=== PATIENT | female | born 1955 | race Hispanic/Latino ===

== ENCOUNTER 2019-03-22 23:44 | Emergency (ER) | payer MEDICARE ==
[~2019-03-22] VITALS: Ht 152.4 cm; Wt 78.0 kg
[2019-03-23] MEDS ORDERED: ACETAMINOPHEN 325 MG TAB ONE (00:21)
[2019-03-23] MEDS ORDERED: ACETAMINOPHEN 325 MG TAB PO ONE (00:30)
[2019-03-23 00:40] LABS: BILIRUBIN,URINE NEGATIVE (NEGATIVE); CLARITY,URINE CLOUDY (CLEAR); COLOR,URINE YELLOW (YELLOW); KETONES,URINE NEGATIVE (NEGATIVE); LEUKOCYTE ESTERASE ,URINE NEGATIVE (NEGATIVE); NITRITE,URINE NEGATIVE (NEGATIVE); PROTEIN,URINE DIPSTICK 2+ (NEGATIVE); URINE UROBILINOGEN 0.2 mg/dL (0.2 - 1)
[2019-03-23 00:51] LABS: WBC,URINE (MAN) >50 /HPF (0-5)
[2019-03-23 00:52] LABS: BACTERIA,URINE MANY /HPF; EPITHELIAL CELLS,URINE FEW /LPF; TRANSITIONAL EPI CELLS,URINE FEW
--- NOTE | 2019-03-23 01:09 | Diagnostic Imaging Report ---
EXAMINATION: PA and lateral views of the chest. COMPARISON: None CLINICAL HISTORY: Fever DISCUSSION: Lines/tubes: None. Lungs: The lungs are well inflated and clear. No pneumonia or pulmonary edema. Pleura: No pleural effusion or pneumothorax. Heart and mediastinum: The cardiomediastinal silhouette is normal. Bones and soft tissues: No acute bony abnormalities. IMPRESSION: No acute cardiopulmonary abnormalities. Signed by: Dr. Chin Beal M.D. on 03/23/2019 1:05 AM
[2019-03-23] MEDS ORDERED: CEFTRIAXONE SOD 1 GM/NS 50 ML 50 ML IV ONE (01:15)
--- NOTE | 2019-03-23 01:42 | Diagnostic Imaging Report ---
EXAMINATION: Head CT without contrast. HISTORY:Headache. COMPARISON:None. TECHNIQUE: Multidetector axial images were obtained from the foramen magnum to the vertex without contrast. The images were reconstructed using brain and bone algorithms. Thin section brain images were reformatted into coronal and sagittal planes. Dose modulation, iterative reconstruction, and/or weight based adjustment of the mA/kV was utilized to reduce the radiation dose to as low as reasonably achievable. Intravenous contrast: None IMAGE QUALITY: Acceptable. FINDINGS: Skull/scalp: No lytic or blastic. lesions. No surgical changes. Parenchyma: No abnormal density. No acute hemorrhage, mass or acute major vascular territorial infarct. Arteries: No density suggestive of thrombosis. Dural sinuses: No abnormal density suggestive of thrombosis. Ventricles: No hydrocephalus or displacement. Extra-axial spaces: No abnormal density. Brain volume: Normal for age. Craniocervical junction: No mass, Chiari malformation, or basilar invagination. Sella: No mass. Paranasal/mastoid sinuses: Mild mucosal thickening in bilateral sphenoid sinuses. IMPRESSION: No acute intracranial abnormality. Signed by: Dr. Amita Carrillo M.D. on 03/23/2019 1:39 AM
[2019-03-23 01:45] LABS: BASOPHILS % 0.2 % (0.0-1.0); EOSINOPHILS % 0.2 % (0.0-6.0); HEMATOCRIT 33.3 % (34.2-44.1); HEMOGLOBIN 11.3 g/dL (12.0-16.0); LYMPHOCYTES # (AUTO) 0.5 (1.0-3.2); LYMPHOCYTES % 5.3 % (18.0-39.1); MEAN CORPUSCULAR HEMOGLOBIN 27.5 pg (28-32); MEAN CORPUSCULAR HGB CONC 33.9 g/dL (31-35); MONOCYTES # (AUTO) 0.6 (0.2-0.8); MONOCYTES % 6.3 % (4.4-11.3); NEUTROPHILS # (AUTO) 7.9 (2.1-6.9); NEUTROPHILS % 87.4 % (38.7-80.0); PLATELET COUNT 164 x10e3/uL (140-360); RED BLOOD COUNT 4.11 x10e6/uL (3.6-5.1); RED CELL DISTRIBUTION WIDTH 13.3 % (11.7-14.4)
[2019-03-23 01:56] LABS: ALANINE AMINOTRANSFERASE 53 IU/L (0-55); ALBUMIN 2.9 g/dL (3.5-5.0); ALBUMIN/GLOBULIN RATIO 0.7 (0.8-2.0); ALKALINE PHOSPHATASE 245 IU/L (40-150); ANION GAP 16.1 mmol/L (8-16); BLOOD UREA NITROGEN 15 mg/dL (7-26); BUN/CREATININE RATIO 19 (6-25); CALCIUM 9.1 mg/dL (8.4-10.2); CARBON DIOXIDE 23 mmol/L (22-29); CHLORIDE 98 mmol/L (98-107); CREATININE, SERUM 0.81 mg/dL (0.57-1.11); EST GLOMERULAR FILTRATION RATE > 60 ML/MIN (60-); POTASSIUM 3.1 mmol/L (3.5-5.1); SODIUM 134 mmol/L (136-145)
[2019-03-23 02:03] LABS: GLUCOSE 419 mg/dL (74-118)
[2019-03-23] MEDS ORDERED: POTASSIUM CHLORIDE 20MEQ/15ML UDC PO STA (02:19)
[2019-03-23] MEDS ORDERED: INSULIN REGULAR, HUMAN 100 UNIT/1 ML 3ML VIAL IV STA (02:19)
[2019-03-23] MEDS ORDERED: MACROBID 100 M100 MG PO (03:15)
[2019-03-23] MEDS ORDERED: ULTRAM50 MG PO (03:15)
[2019-03-23] MEDS ORDERED: KETOROLAC TROMETHAMINE 30 MG/ML VIAL ONE (03:18)
[2019-03-23] MEDS ORDERED: KETOROLAC TROMETHAMINE 30 MG/ML VIAL IV STA (03:32)
--- NOTE | 2019-03-23 04:03 | Diagnostic Imaging Report ---
Exam: AP pelvis History: Leg pain Comparison: None. Findings: No fracture or malalignment. 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 Hip joint spaces preserved. No abnormal soft tissue calcification or soft tissue defect. Impression: No acute osseous abnormality Signed by: Dr. Chin Beal M.D. on 03/23/2019 4:00 AM
== END 2019-03-23 03:55 | disposition home or self-care (01) ==
LOC: ER 23:44
DX: N30.01 Acute cystitis with hematuria (principal)
CPT/HCPCS: 36415; 70450; 71046; 72170; 80053; 81001; 82948; 85025; 96374; 99284; J0696; J1817; J1885

== ENCOUNTER 2020-11-08 12:54 | Inpatient (IN) | payer MEDICARE ==
[~2020-11-08] VITALS: Ht 152.4 cm; Wt 78.0 kg
[~2020-11-08 12:54] MED LIST: MACROBID 100 M100 MG PO; ULTRAM50 MG PO
[2020-11-08] MEDS ORDERED: ASPIRIN 81 MG CHEW TAB PO ONE ×2 (13:15→13:45)
[2020-11-08] MEDS ORDERED: ONDANSETRON HCL 4 MG ORAL DISINTEGRATING TAB PO ONE (13:30)
[2020-11-08] MEDS ORDERED: ACETAMINOPHEN 325 MG TAB PO ONE (13:30)
[2020-11-08 13:36] LABS: BASOPHILS % 0.1 % (0.0-1.0); EOSINOPHILS % 0.1 % (0.0-6.0); HEMATOCRIT 30.2 % (34.2-44.1); HEMOGLOBIN 9.8 g/dL (12.0-16.0); LYMPHOCYTES # (AUTO) 0.7 (1.0-3.2); LYMPHOCYTES % 8.9 % (18.0-39.1); MEAN CORPUSCULAR HEMOGLOBIN 27.5 pg (28-32); MEAN CORPUSCULAR HGB CONC 32.5 g/dL (31-35); MEAN CORPUSCULAR VOLUME 84.6 fL (81-99); MONOCYTES # (AUTO) 0.2 (0.2-0.8); MONOCYTES % 2.6 % (4.4-11.3); NEUTROPHILS # (AUTO) 6.8 (2.1-6.9); NEUTROPHILS % 87.7 % (38.7-80.0); PLATELET COUNT 177 x10e3/uL (140-360); RED BLOOD COUNT 3.57 x10e6/uL (3.6-5.1); RED CELL DISTRIBUTION WIDTH 14.1 % (11.7-14.4)
[2020-11-08] MEDS ORDERED: DEXAMETHASONE SOD PHOS 10 MG/1 ML VIAL IV ONE (13:45)
[2020-11-08 13:52] LABS: ALANINE AMINOTRANSFERASE 105 IU/L (0-55); ALBUMIN 2.9 g/dL (3.5-5.0); ALBUMIN/GLOBULIN RATIO 0.7 (0.8-2.0); ALKALINE PHOSPHATASE 160 IU/L (40-150); ANION GAP 16.3 mmol/L (8-16); BLOOD UREA NITROGEN 9 mg/dL (7-26); BUN/CREATININE RATIO 14 (6-25); CALCIUM 8.1 mg/dL (8.4-10.2); CARBON DIOXIDE 23 mmol/L (22-29); CHLORIDE 103 mmol/L (98-107); CREATINE KINASE 415 IU/L (29-168); CREATININE, SERUM 0.66 mg/dL (0.57-1.11); EST GLOMERULAR FILTRATION RATE > 60 ML/MIN (60-); GLUCOSE 143 mg/dL (74-118); POTASSIUM 3.3 mmol/L (3.5-5.1); SODIUM 139 mmol/L (136-145)
[2020-11-08] MEDS ORDERED: POTASSIUM BICARBONATE/CIT AC 20 MEQ TABLET.EFF PO ONE ×2 (15:30→18:00)
[2020-11-08] MEDS ORDERED: CEFTRIAXONE SOD 1 GM/NS 50 ML 50 ML IV SCH (15:30)
[2020-11-08] MEDS ORDERED: DEXTROSE 50% SYRINGE 50 ML IV PRN (15:45)
[2020-11-08] MEDS ORDERED: ALBUTEROL SULFATE HFA 8GM INHALATION AEROSOL INH PRN (16:00)
[2020-11-08 17:30] VITALS: BP 129/61
[2020-11-08] MEDS ORDERED: REMDESIVIR 200MG/NS 100ML 200 MG IV ONE (18:00)
[2020-11-08] MEDS: CEFTRIAXONE SOD 1 GM in SODIUM CHLORIDE 0.9% 50ML 50 ML IV SCH (18:09)
[2020-11-08] MEDS ORDERED: ROSUVASTATIN CAL5 MG PO (18:16)
[2020-11-08] MEDS ORDERED: METFORMIN HCL500 MG PO (18:16)
[2020-11-08] MEDS ORDERED: LISINOPRIL10 MG PO (18:16)
[2020-11-08] MEDS: INSULIN REGULAR, HUMAN 100 UNIT/1 ML 3ML VIAL SQ SCH ×2 (18:28→21:30)
[2020-11-08] MEDS: HYDROCODONE/CHLORPHENIRAMINE 5 ML LIQCR PO PRN (18:30)
[2020-11-08] MEDS: ENOXAPARIN SOD INJ 40 MG/0.4 ML SYR SC SCH (18:38)
[2020-11-08] MEDS: AZITHROMYCIN 500MG/NS 250 ML 250 ML IV SCH (18:38)
[2020-11-08 20:00] VITALS: BP 109/52
[2020-11-08 21:05] VITALS: BP 109/52
[2020-11-09] VITALS (8 sets, daily range): BP systolic 111–150; BP diastolic 50–86
[2020-11-09 05:16] LABS: BASOPHILS % 0.2 % (0.0-1.0); HEMATOCRIT 30.6 % (34.2-44.1); HEMOGLOBIN 9.9 g/dL (12.0-16.0); LYMPHOCYTES # (AUTO) 0.5 (1.0-3.2); LYMPHOCYTES % 8.1 % (18.0-39.1); MEAN CORPUSCULAR HEMOGLOBIN 27.7 pg (28-32); MEAN CORPUSCULAR HGB CONC 32.4 g/dL (31-35); MEAN CORPUSCULAR VOLUME 85.5 fL (81-99); MONOCYTES # (AUTO) 0.1 (0.2-0.8); MONOCYTES % 2.1 % (4.4-11.3); NEUTROPHILS # (AUTO) 5.8 (2.1-6.9); NEUTROPHILS % 88.7 % (38.7-80.0); PLATELET COUNT 221 x10e3/uL (140-360); RED BLOOD COUNT 3.58 x10e6/uL (3.6-5.1); RED CELL DISTRIBUTION WIDTH 14.2 % (11.7-14.4)
[2020-11-09 05:33] LABS: ALANINE AMINOTRANSFERASE 104 IU/L (0-55); ALBUMIN 2.4 g/dL (3.5-5.0); ALBUMIN/GLOBULIN RATIO 0.6 (0.8-2.0); ALKALINE PHOSPHATASE 151 IU/L (40-150); ANION GAP 14.1 mmol/L (8-16); BLOOD UREA NITROGEN 16 mg/dL (7-26); BUN/CREATININE RATIO 25 (6-25); CALCIUM 8.1 mg/dL (8.4-10.2); CARBON DIOXIDE 24 mmol/L (22-29); CHLORIDE 105 mmol/L (98-107); CREATININE, SERUM 0.65 mg/dL (0.57-1.11); EST GLOMERULAR FILTRATION RATE > 60 ML/MIN (60-); GLUCOSE 218 mg/dL (74-118); POTASSIUM 4.1 mmol/L (3.5-5.1); SODIUM 139 mmol/L (136-145)
[2020-11-09 05:52] LABS: CREATINE KINASE MB 1.5 ng/mL (0-5.0)
[2020-11-09] MEDS: LISINOPRIL 20 MG TAB PO SCH (09:07)
[2020-11-09] MEDS: DEXAMETHASONE SOD PHOS INJ 4 MG/ML VIAL IV SCH (09:07)
[2020-11-09] MEDS: INSULIN REGULAR, HUMAN 100 UNIT/1 ML 3ML VIAL SQ SCH ×4 (09:08→21:24)
[2020-11-09] MEDS: ZINC SULFATE 220 MG CAP PO SCH (09:08)
[2020-11-09] MEDS: ASCORBIC ACID 500 MG TAB PO SCH (09:08)
[2020-11-09] MEDS: ENOXAPARIN SOD INJ 40 MG/0.4 ML SYR SC SCH (17:16)
[2020-11-09] MEDS: CEFTRIAXONE SOD 1 GM in SODIUM CHLORIDE 0.9% 50ML 50 ML IV SCH (17:16)
[2020-11-09] MEDS: AZITHROMYCIN 500MG/NS 250 ML 250 ML IV SCH (17:16)
[2020-11-09] MEDS ORDERED: REMDESIVIR 100MG/NS 100ML 100 MG IV SCH (18:00)
[2020-11-09] MEDS: HYDROCODONE/CHLORPHENIRAMINE 5 ML LIQCR PO PRN (21:26)
[2020-11-10] VITALS (8 sets, daily range): BP systolic 137–162; BP diastolic 55–78
[2020-11-10] MEDS: ACETAMINOPHEN 325 MG TAB PO PRN (03:10)
[2020-11-10] MEDS: INSULIN REGULAR, HUMAN 100 UNIT/1 ML 3ML VIAL SQ SCH (07:30)
[2020-11-10] MEDS: DEXAMETHASONE SOD PHOS INJ 4 MG/ML VIAL IV SCH (09:46)
[2020-11-10] MEDS: LISINOPRIL 20 MG TAB PO SCH (09:47)
[2020-11-10] MEDS: ZINC SULFATE 220 MG CAP PO SCH (09:48)
[2020-11-10] MEDS: ASCORBIC ACID 500 MG TAB PO SCH (09:48)
[2020-11-10] MEDS: ONDANSETRON HCL INJ 2MG/ML 2ML 2 MG/ML VIAL IV PRN (10:34)
[2020-11-10] MEDS: INSULIN LISPRO 100 UNIT/1 ML 3ML VIAL SQ SCH ×3 (12:00→20:54)
[2020-11-10] MEDS: ENOXAPARIN SOD INJ 40 MG/0.4 ML SYR SC SCH (17:35)
[2020-11-10] MEDS: CEFTRIAXONE SOD 1 GM in SODIUM CHLORIDE 0.9% 50ML 50 ML IV SCH (17:35)
[2020-11-10] MEDS: REMDESIVIR 100MG/NS 100ML 100 MG IV SCH (17:35)
[2020-11-10] MEDS: AZITHROMYCIN 500MG/NS 250 ML 250 ML IV SCH (17:35)
[2020-11-10] MEDS: HYDROCODONE/CHLORPHENIRAMINE 5 ML LIQCR PO PRN (17:36)
[2020-11-10] MEDS ORDERED: LISINOPRIL 10 MG TAB PO SCH (21:15)
[2020-11-10] MEDS ORDERED: CLONIDINE HCL 0.1 MG TAB PO PRN (21:30)
[2020-11-11] VITALS (8 sets, daily range): BP systolic 142–168; BP diastolic 59–72
[2020-11-11] MEDS: INSULIN LISPRO 100 UNIT/1 ML 3ML VIAL SQ SCH ×4 (07:30→21:00)
[2020-11-11] MEDS: DEXAMETHASONE SOD PHOS INJ 4 MG/ML VIAL IV SCH (09:48)
[2020-11-11] MEDS: LISINOPRIL 20 MG TAB PO SCH (09:49)
[2020-11-11] MEDS: ZINC SULFATE 220 MG CAP PO SCH (09:49)
[2020-11-11] MEDS: ASCORBIC ACID 500 MG TAB PO SCH (09:49)
[2020-11-11] MEDS ORDERED: SODIUM CHLORIDE 0.9% 50ML 50 ML ONE (11:29)
[2020-11-11] MEDS ORDERED: IOPAMIDOL 370 MG/ML 200 ML INFUS..BTL INJ ONE (11:29)
[2020-11-11] MEDS: REMDESIVIR 100MG/NS 100ML 100 MG IV SCH (14:56)
[2020-11-11] MEDS: AZITHROMYCIN 500MG/NS 250 ML 250 ML IV SCH (14:56)
[2020-11-11] MEDS: CEFTRIAXONE SOD 1 GM in SODIUM CHLORIDE 0.9% 50ML 50 ML IV SCH (14:56)
[2020-11-11] MEDS: HYDROCODONE/CHLORPHENIRAMINE 5 ML LIQCR PO PRN (17:33)
[2020-11-11] MEDS: ENOXAPARIN SOD INJ 40 MG/0.4 ML SYR SC SCH (17:33)
[2020-11-12] VITALS (8 sets, daily range): BP systolic 127–161; BP diastolic 64–94
[2020-11-12 05:32] LABS: BASOPHILS % 0.2 % (0.0-1.0); EOSINOPHILS % 0.2 % (0.0-6.0); HEMOGLOBIN 9.7 g/dL (12.0-16.0); LYMPHOCYTES # (AUTO) 1.1 (1.0-3.2); LYMPHOCYTES % 12.7 % (18.0-39.1); MEAN CORPUSCULAR HEMOGLOBIN 26.9 pg (28-32); MEAN CORPUSCULAR HGB CONC 32.3 g/dL (31-35); MEAN CORPUSCULAR VOLUME 83.3 fL (81-99); MONOCYTES # (AUTO) 0.3 (0.2-0.8); MONOCYTES % 3.4 % (4.4-11.3); NEUTROPHILS # (AUTO) 7.1 (2.1-6.9); NEUTROPHILS % 79.9 % (38.7-80.0); PLATELET COUNT 344 x10e3/uL (140-360); RED CELL DISTRIBUTION WIDTH 14.2 % (11.7-14.4)
[2020-11-12 05:42] LABS: ANION GAP 13.3 mmol/L (8-16); BLOOD UREA NITROGEN 15 mg/dL (7-26); BUN/CREATININE RATIO 29 (6-25); CALCIUM 7.7 mg/dL (8.4-10.2); CARBON DIOXIDE 28 mmol/L (22-29); CHLORIDE 104 mmol/L (98-107); CREATININE, SERUM 0.51 mg/dL (0.57-1.11); EST GLOMERULAR FILTRATION RATE > 60 ML/MIN (60-); GLUCOSE 98 mg/dL (74-118); POTASSIUM 3.3 mmol/L (3.5-5.1); SODIUM 142 mmol/L (136-145)
[2020-11-12] MEDS: INSULIN LISPRO 100 UNIT/1 ML 3ML VIAL SQ SCH ×4 (07:30→21:00)
[2020-11-12] MEDS: DEXAMETHASONE SOD PHOS INJ 4 MG/ML VIAL IV SCH (08:56)
[2020-11-12] MEDS: LISINOPRIL 20 MG TAB PO SCH (08:57)
[2020-11-12] MEDS: ASCORBIC ACID 500 MG TAB PO SCH (08:57)
[2020-11-12] MEDS: ZINC SULFATE 220 MG CAP PO SCH (08:58)
[2020-11-12] MEDS ORDERED: POTASSIUM CHLORIDE 20 MEQ TAB CR PO STA (10:31)
[2020-11-12] MEDS: REMDESIVIR 100MG/NS 100ML 100 MG IV SCH (16:23)
[2020-11-12] MEDS: AZITHROMYCIN 500MG/NS 250 ML 250 ML IV SCH (16:24)
[2020-11-12] MEDS: CEFTRIAXONE SOD 1 GM in SODIUM CHLORIDE 0.9% 50ML 50 ML IV SCH (16:24)
[2020-11-12] MEDS: ENOXAPARIN SOD INJ 40 MG/0.4 ML SYR SC SCH (18:44)
[2020-11-13] MEDS: ONDANSETRON HCL INJ 2MG/ML 2ML 2 MG/ML VIAL IV PRN (00:16)
[2020-11-13] MEDS: HYDROCODONE/CHLORPHENIRAMINE 5 ML LIQCR PO PRN (00:16)
[2020-11-13 00:44] VITALS: BP 148/67
[2020-11-13 04:48] VITALS: BP 149/66
[2020-11-13] MEDS: INSULIN LISPRO 100 UNIT/1 ML 3ML VIAL SQ SCH ×4 (07:30→21:45)
[2020-11-13 08:13] VITALS: BP 149/66
[2020-11-13] MEDS: DEXAMETHASONE SOD PHOS INJ 4 MG/ML VIAL IV SCH (09:09)
[2020-11-13] MEDS: ZINC SULFATE 220 MG CAP PO SCH (09:10)
[2020-11-13] MEDS: ASCORBIC ACID 500 MG TAB PO SCH (09:10)
[2020-11-13] MEDS: LISINOPRIL 20 MG TAB PO SCH ×2 (09:10→17:06)
[2020-11-13 12:12] VITALS: BP 158/63
[2020-11-13 15:44] VITALS: BP 143/63
[2020-11-13] MEDS: AZITHROMYCIN 500MG/NS 250 ML 250 ML IV SCH (15:59)
[2020-11-13] MEDS: REMDESIVIR 100MG/NS 100ML 100 MG IV SCH (15:59)
[2020-11-13] MEDS: CEFTRIAXONE SOD 1 GM in SODIUM CHLORIDE 0.9% 50ML 50 ML IV SCH (15:59)
[2020-11-13] MEDS: ENOXAPARIN SOD INJ 40 MG/0.4 ML SYR SC SCH (17:06)
[2020-11-13 20:00] VITALS: BP 169/72
[2020-11-13] MEDS: ACETAMINOPHEN 325 MG TAB PO PRN (21:47)
[2020-11-14] VITALS (8 sets, daily range): BP systolic 121–155; BP diastolic 55–71
[2020-11-14] MEDS: INSULIN LISPRO 100 UNIT/1 ML 3ML VIAL SQ SCH ×4 (07:30→20:38)
[2020-11-14] MEDS: HYDROCODONE/CHLORPHENIRAMINE 5 ML LIQCR PO PRN ×2 (09:00→20:41)
[2020-11-14] MEDS: ACETAMINOPHEN 325 MG TAB PO PRN (09:00)
[2020-11-14] MEDS: ASCORBIC ACID 500 MG TAB PO SCH (09:10)
[2020-11-14] MEDS: LISINOPRIL 20 MG TAB PO SCH ×2 (09:10→16:27)
[2020-11-14] MEDS: ZINC SULFATE 220 MG CAP PO SCH (09:10)
[2020-11-14] MEDS: DEXAMETHASONE SOD PHOS INJ 4 MG/ML VIAL IV SCH (09:10)
[2020-11-14] MEDS ORDERED: ENOXAPARIN SOD INJ 40 MG/0.4 ML SYR SC ONE (16:11)
[2020-11-14] MEDS ORDERED: LISINOPRIL 20 MG TAB ONE (16:11)
[2020-11-14] MEDS ORDERED: AZITHROMYCIN 500MG/NS 250 ML 250 ML ONE (16:12)
[2020-11-14] MEDS ORDERED: CEFTRIAXONE SOD 1 GM VIAL ONE (16:12)
[2020-11-14] MEDS: AZITHROMYCIN 500MG/NS 250 ML 250 ML IV SCH (16:17)
[2020-11-14] MEDS: CEFTRIAXONE SOD 1 GM in SODIUM CHLORIDE 0.9% 50ML 50 ML IV SCH (16:17)
[2020-11-14] MEDS: ENOXAPARIN SOD INJ 40 MG/0.4 ML SYR SC SCH (16:18)
[2020-11-15] VITALS (8 sets, daily range): BP systolic 140–150; BP diastolic 53–67
[2020-11-15] MEDS: INSULIN LISPRO 100 UNIT/1 ML 3ML VIAL SQ SCH ×4 (07:30→21:20)
[2020-11-15] MEDS: DEXAMETHASONE SOD PHOS INJ 4 MG/ML VIAL IV SCH (08:31)
[2020-11-15] MEDS: ZINC SULFATE 220 MG CAP PO SCH (08:32)
[2020-11-15] MEDS: LISINOPRIL 20 MG TAB PO SCH ×2 (08:32→16:14)
[2020-11-15] MEDS: ASCORBIC ACID 500 MG TAB PO SCH (08:32)
[2020-11-15] MEDS: HYDROCODONE/CHLORPHENIRAMINE 5 ML LIQCR PO PRN (09:37)
[2020-11-15] MEDS ORDERED: HYDROCODONE/CHLORPHENIRAMINE 5 ML LIQCR ONE (09:42)
[2020-11-15] MEDS: CEFTRIAXONE SOD 1 GM in SODIUM CHLORIDE 0.9% 50ML 50 ML IV SCH (16:13)
[2020-11-15] MEDS: ENOXAPARIN SOD INJ 40 MG/0.4 ML SYR SC SCH (16:14)
[2020-11-15] MEDS: AZITHROMYCIN 500MG/NS 250 ML 250 ML IV SCH (17:00)
[2020-11-15] MEDS ORDERED: CITRATE OF MAGNESIA 300ML BOTTLE PO ONE (17:45)
[2020-11-15] MEDS: INSULIN GLARGINE 100 UNITS/ML VIAL SQ SCH (21:53)
[2020-11-15] MEDS: ACETAMINOPHEN 325 MG TAB PO PRN (22:03)
[2020-11-16] VITALS (9 sets, daily range): BP systolic 120–151; BP diastolic 40–68
[2020-11-16] MEDS: INSULIN LISPRO 100 UNIT/1 ML 3ML VIAL SQ SCH ×4 (07:30→21:40)
[2020-11-16] MEDS: DEXAMETHASONE SOD PHOS INJ 4 MG/ML VIAL IV SCH (08:27)
[2020-11-16] MEDS: ZINC SULFATE 220 MG CAP PO SCH (08:28)
[2020-11-16] MEDS: LISINOPRIL 20 MG TAB PO SCH ×2 (08:28→15:44)
[2020-11-16] MEDS: ASCORBIC ACID 500 MG TAB PO SCH (08:28)
[2020-11-16] MEDS ORDERED: SODIUM CHLORIDE 0.9% 250ML 250 ML ONE (14:50)
[2020-11-16] MEDS: CEFTRIAXONE SOD 1 GM in SODIUM CHLORIDE 0.9% 50ML 50 ML IV SCH (15:44)
[2020-11-16] MEDS: AZITHROMYCIN 500MG/NS 250 ML 250 ML IV SCH (17:00)
[2020-11-16] MEDS: HYDROCODONE/CHLORPHENIRAMINE 5 ML LIQCR PO PRN (18:20)
[2020-11-16] MEDS: INSULIN GLARGINE 100 UNITS/ML VIAL SQ SCH (21:40)
[2020-11-17] VITALS (8 sets, daily range): BP systolic 129–149; BP diastolic 53–77
[2020-11-17] MEDS: INSULIN LISPRO 100 UNIT/1 ML 3ML VIAL SQ SCH ×4 (07:30→20:51)
[2020-11-17] MEDS ORDERED: DEXAMETHASONE SOD PHOS 10 MG/1 ML VIAL ONE (08:19)
[2020-11-17] MEDS ORDERED: INSULIN GLARGINE 100 UNITS/ML VIAL SQ SCH (09:00)
[2020-11-17] MEDS: LISINOPRIL 20 MG TAB PO SCH ×2 (09:46→17:12)
[2020-11-17] MEDS: DEXAMETHASONE SOD PHOS INJ 4 MG/ML VIAL IV SCH (09:46)
[2020-11-17] MEDS: ZINC SULFATE 220 MG CAP PO SCH (09:47)
[2020-11-17] MEDS: ASCORBIC ACID 500 MG TAB PO SCH (09:47)
[2020-11-17] MEDS: CEFTRIAXONE SOD 1 GM in SODIUM CHLORIDE 0.9% 50ML 50 ML IV SCH (14:46)
[2020-11-17] MEDS: AZITHROMYCIN 500MG/NS 250 ML 250 ML IV SCH (15:34)
[2020-11-17] MEDS: INSULIN GLARGINE 100 UNITS/ML VIAL SQ SCH (20:51)
[2020-11-17] MEDS: HYDROCODONE/CHLORPHENIRAMINE 5 ML LIQCR PO PRN (23:48)
[2020-11-18] VITALS (8 sets, daily range): BP systolic 134–157; BP diastolic 56–72
[2020-11-18] MEDS: INSULIN LISPRO 100 UNIT/1 ML 3ML VIAL SQ SCH ×4 (07:30→21:53)
[2020-11-18] MEDS: DEXAMETHASONE SOD PHOS INJ 4 MG/ML VIAL IV SCH (08:28)
[2020-11-18] MEDS: LISINOPRIL 20 MG TAB PO SCH ×2 (08:29→16:44)
[2020-11-18] MEDS: ASCORBIC ACID 500 MG TAB PO SCH (08:29)
[2020-11-18] MEDS: ZINC SULFATE 220 MG CAP PO SCH (08:29)
[2020-11-18] MEDS: INSULIN GLARGINE 100 UNITS/ML VIAL SQ SCH ×2 (09:03→21:54)
[2020-11-18] MEDS: AZITHROMYCIN 500MG/NS 250 ML 250 ML IV SCH (15:00)
[2020-11-18] MEDS: CEFTRIAXONE SOD 1 GM in SODIUM CHLORIDE 0.9% 50ML 50 ML IV SCH (15:26)
[2020-11-18] MEDS: HYDROCODONE/CHLORPHENIRAMINE 5 ML LIQCR PO PRN (23:13)
[2020-11-19 04:55] VITALS: BP 131/54
[2020-11-19] MEDS: INSULIN LISPRO 100 UNIT/1 ML 3ML VIAL SQ SCH ×2 (07:30→11:30)
[2020-11-19] MEDS: ASCORBIC ACID 500 MG TAB PO SCH (08:27)
[2020-11-19] MEDS: ZINC SULFATE 220 MG CAP PO SCH (08:27)
[2020-11-19] MEDS: INSULIN GLARGINE 100 UNITS/ML VIAL SQ SCH (08:28)
[2020-11-19] MEDS: LISINOPRIL 20 MG TAB PO SCH (08:28)
[2020-11-19 08:30] VITALS: BP 132/58
[2020-11-19 09:12] VITALS: BP 132/58
[2020-11-19 12:31] VITALS: BP 126/66
[2020-11-19 16:09] VITALS: BP 151/81
== END 2020-11-19 16:47 | disposition home or self-care (01) | DRG 871 ==
LOC: ER 13:23 → ERHOLD 13:38 → IMCU 17:14
PROVIDERS: ADMIT Internal Medicine; ATTEND Internal Medicine
PROC: 3E0333Z Introduction of Anti-inflammatory into Peripheral Vein, Percutaneous Approach (ICD-10-PCS; principal; 2020-11-08)
PROC: XW033E5 Introduction of Remdesivir Anti-infective into Peripheral Vein, Percutaneous Approach, New Technology Group 5 (ICD-10-PCS; 2020-11-08)
DX: A41.89 Other specified sepsis (principal); U07.1 COVID-19; J96.00 Acute respiratory failure, unspecified whether with hypoxia or hypercapnia; J12.82 Pneumonia due to coronavirus disease 2019; J96.01 Acute respiratory failure with hypoxia; B17.8 Other specified acute viral hepatitis; E87.6 Hypokalemia; I10 Essential (primary) hypertension; E78.00 Pure hypercholesterolemia, unspecified; G89.4 Chronic pain syndrome; Z80.9 Family history of malignant neoplasm, unspecified; D64.9 Anemia, unspecified; E11.65 Type 2 diabetes mellitus with hyperglycemia; E83.51 Hypocalcemia
CPT/HCPCS: 36415; 71045; 71260; 80048; 80053; 82550; 82553; 82948; 83036; 83880; 84484; 84520; 85025; 93005; 96372; 99284; J0456; J0696; J1100; J1650; J1815; J1817; J2405; J7050; Q0162; Q9967; U0002